=== PATIENT | male | born 1995 | race Caucasian/White ===

== ENCOUNTER 2017-06-05 10:20 | Day surgery (SDC) | payer BC ==
[2017-06-05] VITALS (9 sets, daily range): BP systolic 116–166; BP diastolic 60–81; PULSE 78–112; RESP 12–25; Ht 182.9 cm; Wt 73.0 kg
[~2017-06-05] VITALS: Ht 182.9 cm; Wt 73.0 kg
[2017-06-05] MEDS ORDERED: CEFAZOLIN 2 GM/50 ML (PMX) 50 ML IVPB SCH (11:30)
[2017-06-05] MEDS ORDERED: SOD CHLORIDE 0.9% 1,000 ML IV SCH (11:30)
[2017-06-05] MEDS ORDERED: OXYCODONE/ACETAMINOPHEN (5/325) TAB PO PRN ×2 (14:00)
[2017-06-05] MEDS ORDERED: FENTAnyl 50 MCG/ML VIAL IV PRN ×3 (14:00)
[2017-06-05] MEDS ORDERED: MEPERIDINE 25 MG INJ IV PRN (14:00)
[2017-06-05] MEDS ORDERED: HYDROmorphONE (0.2 MG/ML) 10ML SYG IV PRN ×3 (14:00)
[2017-06-05] MEDS ORDERED: ONDANSETRON 4 MG INJ IV PRN (14:00)
[2017-06-05] MEDS ORDERED: PROCHLORPERAZINE 10 MG INJ IV PRN (14:00)
[2017-06-05] MEDS ORDERED: DIPHENHYDRAMINE 50 MG INJ IV PRN (14:00)
[2017-06-05] MEDS ORDERED: BUPIVACAINE 0.25% (MPF) 10 ML 10 ML VIAL ONE (14:02)
[2017-06-05] MEDS ORDERED: ROCURONIUM 50 MG INJ ONE (14:24)
[2017-06-05] MEDS ORDERED: PROPOFOL 20 ML ONE ×2 (14:24→14:48)
[2017-06-05] MEDS ORDERED: SUCCINYLCHOLINE CHLORIDE 100 MG/5 ML SYG IV ONE (14:24)
[2017-06-05] MEDS ORDERED: LIDOCAINE 2% (SDV) 5 ML INJ ONE (14:24)
[2017-06-05] MEDS ORDERED: FENTAnyl 50 MCG/ML VIAL ONE (14:24)
[2017-06-05] MEDS ORDERED: MIDAZOLAM 1 MG/ML 2 ML INJ ONE (14:24)
[2017-06-05] MEDS ORDERED: DEXAMETHASONE 4 MG/ML 1 ML INJ ONE (14:44)
[2017-06-05] MEDS ORDERED: CEFAZOLIN 1 GM INJ ONE (14:44)
[2017-06-05] MEDS ORDERED: ONDANSETRON 4 MG INJ ONE (14:44)
[2017-06-05] MEDS ORDERED: FAMOTIDINE 20 MG INJ ONE (14:44)
[2017-06-05] MEDS ORDERED: HYDROmorphONE 2 MG/ML SYG ONE (14:58)
[2017-06-05] MEDS ORDERED: GLYCOPYRROLATE 0.4 MG INJ ONE (15:10)
[2017-06-05] MEDS ORDERED: NEOSTIGMINE 3 MG/3 ML SYRINGE ONE (15:10)
--- NOTE | 2017-06-05 15:19 | OPR ---
Date/Time of Note Date/Time of Note DATE: 06/05/17 TIME: 15:15 Operative Report Procedure Date: Jun 05, 2017 Preoperative Diagnosis sacral mass Postoperative Diagnosis sacral mass Operation/Procedure Performed 1. sacral mass resection 5 cm mass 6 cm incision 2. localized adjacent tissue transfer with the use of skin flaps 12 sq cm defect 3. therapeutic injection of subcutaneous local anesthesia Surgeon see signature line Metal Cleaner none Anesthesia Type: general Estimated Blood Loss: minimal Transfusion none Specimen sacral mass Grafts/Implants none Complications none Pt Condition Post Procedure: stable Indications This is a 21-year-old male with a sacral mass. He requests surgical excision. Risks alternatives benefits and personnel were discussed with the patient. Patient's best understanding consents to the operation. Procedure Description Patient taken to the OR prepped and draped in usual sterile fashion. Surgical timeout was performed. IV antibiotics were given. Midline sacral incision is made with a 15 blade. Dissection cautery was carried down to the mass. The mass and circumferentially excised. There is good hemostasis. The surgical site is irrigated. Due to the large tissue defect localized adjacent tissue transfer with these of skin flaps was performed. Multilayer closure with interrupted 3-0 Vicryl and running 4-0 Monocryl. Therapeutic subcutaneous local anesthesia is injected throughout the incision site dry dressings were applied. Angie FINCH Jun 05, 2017 15:19
[2017-06-05] MEDS ORDERED: HYDROCODONE/APAP (5/325) TAB PO ONE (15:30)
== END 2017-06-05 16:50 | disposition home or self-care (01) ==
LOC: SDS 10:20
PROVIDERS: ATTEND Surgery
DX: L72.0 Epidermal cyst (principal)
CPT/HCPCS: 14001; 88307; J0690; J1100; J1170; J1200; J2175; J2250; J2405; J2710; J3010; Z7512; Z7610